=== PATIENT | female | born 1950 | race Caucasian/White ===

== ENCOUNTER → 2022-07-13 | Outpatient (CLI) | payer MEDICARE ==
--- NOTE | 2022-07-13 15:37 | BD ---
EXAMINATION TYPE: Axial Bone Density DATE OF EXAM: 07/13/2022 COMPARISON: NONE CLINICAL HISTORY: 71 years year old Female. ICD-10 CODE: Z78.0 POST MENOPAUSAL WITHOUT HRT Height: 249 LBS Weight: 62.2 IN RISK FACTORS HISTORY OF: Active: YES Postmenopausal woman: AGE 50 Take estrogen and/or progesterone medications: NOT NOW How long: TOOK FOR 9 MONTHS MEDICATIONS: Additional Medications: LOSARTAN, LATANOPROST, FLAX SEED OIL, OSTEO BI FLEX, MULTI VIT EXAM MEASUREMENTS: Bone mineral densitometry was performed using the [employer] System. Bone mineral density as measured about the Lumbar spine is: ----- L1-L4(G/cm2): 1.256 T Score Values are as follows: ----- L1: -0.9 ----- L2: 0.7 ----- L3: 0.7 ----- L4: 1.6 ----- L1-L4: 0.6 Bone mineral density BASELINE Bone mineral density about the R hip (g/cm2): 0.938 Bone mineral density about the L hip (g/cm2): 0.877 T Score values are as follows: -----R Neck: -0.7 -----L Neck: -1.2 -----R Total: -0.3 -----L Total: -0.2 Bone mineral density BASELINE FRAX%s: The graph provided illustrates a 8.1 chance for a major osteoporotic fx and a 0.9 chance for the hips probability for fx in 10 years time. IMPRESSION: Osteopenia (T Score between -2.5 and -1). There is slightly increased risk of fracture and the patient may be considered for treatment. Re-Screen 2-5 years. NOTE: T-SCORE=SD OF THE YOUNG ADULT MEAN.
--- NOTE | 2022-07-14 15:22 | CA ---
Transthoracic Echo Report Name: Padmini Galindo Age: 71 Gender: F : 1950 Exam Date: 07/13/2022 14:00 Exam Location: [facility] Ht (in): 62 Wt (lb): 245 Ordering Physician: Chencho Soliman MD Attending/Referring Phys: Chencho Soliman MD Derrick Helper Misty Melendrez RDCS Procedure CPT: Indications: R06.02 R68.89 Cardiac Hx: Technical Quality: Contrast 1: Total Dose (mL): Contrast 2: Total Dose (mL): MEASUREMENTS (Male / Female) Normal Values 2D ECHO LA Volume 64.0 cm??? 18 - 58 / 22 - 52 cm??? M-MODE Aortic Root Diameter MM 2.6 cm LA Systolic Diameter MM 4.5 cm LA Ao Ratio MM 1.7 MV E Point Septal Separation 0.3 cm AV Cusp Separation MM 1.9 cm DOPPLER MV E' Velocity 5.8 cm/s TR Peak Velocity 244.0 cm/s TR Peak Gradient 23.8 mmHg Right Ventricular Systolic Press 28.8 mmHg FINDINGS Left Ventricle Left ventricular ejection fraction is estimated at 55 %. Left ventricular cavity size normal. Right Ventricle Normal right ventricular size and function. Right ventricular systolic pressure within normal limits. Right Atrium Normal right atrial size. Left Atrium Moderately increased left atrial volume. Mitral Valve Structurally normal mitral valve. Mild mitral regurgitation. Aortic Valve Trileaflet aortic valve. Tricuspid Valve Structurally normal tricuspid valve. Pulmonic Valve Structurally normal pulmonic valve. Pericardium Echo free space anterior to the right ventricle likely represents a fat pad. Aorta Normal size aortic root and proximal ascending aorta. CONCLUSIONS Left ventricular systolic function is normal Mild mitral regurgitation Previewed by: Dr. Karthikeyan Grant MD (Electronically Signed) Final Date: 14 July 2022 15:21
--- NOTE | 2022-07-16 08:38 | MM ---
Reason for Exam: Screening (asymptomatic). Last mammogram was performed 1 year(s) and 2 month(s) ago. Patient History: Menarche at age 13. Patient has no children. Postmenopausal. Lumpectomy on the Right side. Risk Values: Renae 5 year model risk: 1.9%. NCI Lifetime model risk: 5.4%. Prior Study Comparison: 05/16/2020 Bilateral Screening 3D/Tomosynthesis, [facility]. 05/22/2021 Bilateral Screening 3D/Tomosynthesis, [facility]. Tissue Density: The breast tissue is almost entirely fat. Findings: Analyzed By CAD. There is no suspicious group of microcalcifications or new suspicious mass in either breast. Overall Assessment: Negative, BI-RAD 1 Management: Screening Mammogram of both breasts in 1 year. A clinical breast exam by your physician is recommended on an annual basis and results should be correlated with mammographic findings. [facility] will attempt to contact patient to return for supplemental views and ultrasound if indicated. Electronically signed and approved by: Chino Vergara DO
== END | disposition home or self-care (01) ==
LOC: RADMAMWWP 12:36
PROVIDERS: ATTEND Family Medicine
DX: Z12.31 Encounter for screening mammogram for malignant neoplasm of breast (principal); I37.0 Nonrheumatic pulmonary valve stenosis; M85.89 Other specified disorders of bone density and structure, multiple sites; Z78.0 Asymptomatic menopausal state
CPT/HCPCS: 77063; 77067; 77080; 93306

== ENCOUNTER 2023-01-09 08:35 | Day surgery (SDC) | payer MEDICARE ==
[2023-01-04 16:17] VITALS: BMI 40.7
[~2023-01-09 08:35] MED LIST: LACTATED RINGERS 1,000 ML IV SCH; LIDOCAINE 1% (10MG/ML) FOR IV START INTRADERMA PRN
[2023-01-09 09:03] VITALS: TEMP 96.9
[2023-01-09] MEDS ORDERED: PROPOFOL 10 MG/ML 20 ML VIAL IV ONE (09:48)
[2023-01-09] MEDS ORDERED: LIDOCAINE 2% INJ 20 MG/ML (2 ML VIAL) ONE (09:48)
--- NOTE | 2023-01-09 10:07 | P.PCN ---
Date of Procedure: 01/09/23 Procedure(s) Performed: BRIEF HISTORY: Patient is a 72-year-old pleasant white female scheduled for an elective colonoscopy as a part of screening for colon cancer.. Her last colonoscopy was 11 years ago PROCEDURE PERFORMED: Colonoscopy. PREOPERATIVE DIAGNOSIS: Screening for colon cancer IV sedation per Anesthesia. PROCEDURE: After informed consent was obtained, the patient, was brought into the endoscopy unit. IV sedation was administered by Anesthesia under continuous monitoring. Digital rectal examination was normal. Initially the Olympus CF-160 flexible video colonoscope was then inserted in the rectum, gradually advanced into the cecum without any difficulty. Careful examination was performed as the scope was gradually being withdrawn. Ileocecal valve and the appendiceal orifice were visualized and appeared normal. Prep was excellent. Mucosa of the cecum, ascending colon, transverse colon, descending colon, sigmoid colon, and rectum appeared normal. Scattered sigmoid diverticulosis Retroflexion was performed in the rectum and no lesions were seen. The patient tolerated the procedure well. IMPRESSION: Normal-appearing colon from rectum to cecum with no evidence of colorectal neoplasia Scattered sigmoid diverticula . RECOMMENDATIONS: Findings of this examination were discussed with the patientas well as a family. She was advised to have a repeat screening colonoscopy in 10 years].
[2023-01-09 10:26] VITALS: BP 145/89; PULSE 74; RESP 16
== END 2023-01-09 10:53 | disposition home or self-care (01) ==
LOC: ORWHC2ENDO 08:35
PROVIDERS: ATTEND Internal Medicine Gastroenterology
DX: Z12.11 Encounter for screening for malignant neoplasm of colon (principal); K57.30 Diverticulosis of large intestine without perforation or abscess without bleeding; I10 Essential (primary) hypertension; M19.90 Unspecified osteoarthritis, unspecified site; Z88.0 Allergy status to penicillin; Z79.899 Other long term (current) drug therapy
CPT/HCPCS: J2704; J2001; G0121

== ENCOUNTER → 2023-07-15 | Outpatient (CLI) | payer MEDICARE ==
--- NOTE | 2023-07-16 20:33 | MM ---
Reason for Exam: Screening (asymptomatic). Last screening mammogram was performed 12 month(s) ago. Patient History: Menarche at age 13. Patient has no children. Postmenopausal. Lumpectomy on the Right side. Risk Values: Renae 5 year model risk: 2.0%. NCI Lifetime model risk: 5.1%. Prior Study Comparison: 05/16/2020 Bilateral Screening 3D/Tomosynthesis, [facility]. 05/22/2021 Bilateral Screening 3D/Tomosynthesis, [facility]. 07/13/2022 Bilateral MG 3D screening mammo w/cad, [facility]. Tissue Density: There are scattered fibroglandular densities. Findings: Analyzed By CAD. There is no suspicious group of microcalcifications or new suspicious mass in either breast. Overall Assessment: Negative, BI-RAD 1 Management: Screening Mammogram of both breasts in 1 year. . Patient should continue monthly self-breast exams. A clinical breast exam by your physician is recommended on an annual basis. This exam should not preclude additional follow-up of suspicious palpable abnormalities. Note on Renae scores and lifetime risk: 1. A Renae score greater than 3% is considered moderate risk. If this is the case, consider specialist referral to assess eligibility for a risk reducing agent. 2. If overall lifetime risk for the development of breast cancer is 20% or higher, the patient may qualify for future screening with alternating mammogram and breast MRI. Electronically signed and approved by: Ben Gan M.D. Radiologist
== END | disposition home or self-care (01) ==
LOC: RADMAMWWP 11:10
PROVIDERS: ATTEND Family Medicine
DX: Z12.31 Encounter for screening mammogram for malignant neoplasm of breast (principal); Z78.0 Asymptomatic menopausal state; Z98.82 Breast implant status
CPT/HCPCS: 77063; 77067